=== PATIENT | male | born 1955 | race Asian ===

== ENCOUNTER 2025-05-31 18:48 | Emergency (ER) | payer OTHER, MEDICARE ==
[~2025-05-31] VITALS: Ht 172.7 cm; Wt 77.3 kg
[2025-05-31] MEDS ORDERED: METF-1211 PO (19:14)
[2025-05-31] MEDS ORDERED: ATOR20TA PO (19:14)
[2025-05-31] MEDS ORDERED: LISI-894 PO (19:14)
[2025-05-31 22:15] VITALS: BP 145/96; PULSE 75; RESP 16; TEMP 97.3; O2SAT 98
== END 2025-06-01 03:50 | disposition home or self-care (01) ==
LOC: EMS 18:56
DX: S00.83XA Contusion of other part of head, initial encounter (principal); E11.9 Type 2 diabetes mellitus without complications; Z79.899 Other long term (current) drug therapy; X58.XXXA Exposure to other specified factors, initial encounter; Y93.89 Activity, other specified; Y92.89 Other specified places as the place of occurrence of the external cause; Y99.0 Civilian activity done for income or pay
CPT/HCPCS: 70450; 70486; 72125; 82962; 99284